=== PATIENT | male | born 1965 | race African-American/Black ===

== ENCOUNTER 2019-03-03 11:56 | Emergency (ER) | payer SELFPAY ==
[~2019-03-03] VITALS: Ht 180.3 cm; Wt 102.1 kg
[2019-03-03 12:10] VITALS: BP 169/90
--- NOTE | 2019-03-03 12:10 | NUR ---
ED Nurse Note: PT [id number], VSS WITH NO SIGNS OF ACUTE DISTRESS. c/o N/V (brown & yellow emesis) since last night;diaphoretic, + heavy alcohol consumption last night. PT FRIEND AT BEDSIDE.
--- NOTE | 2019-03-03 12:35 | NUR ---
ED Nurse Note: BLOOD DRAWN AND SENT TO LAB
[2019-03-03 13:05] LABS: APPEARANCE,URINE CLEAR; BILIRUBIN, URINE NEGATIVE (NEGATIVE); GLUCOSE, URINE (UA) NEGATIVE (NEGATIVE); KETONES,URINE 2+ (NEGATIVE); LEUKOCYTE ESTERASE ,URINE 1+ (NEGATIVE); NITRITE,URINE NEGATIVE (NEGATIVE); PH,URINE 8 (4.5-8.0); PROTEIN,URINE 3+ (NEGATIVE); UROBILINOGEN,URINE 1 MG/DL (0.0-1.0)
[2019-03-03 13:07] LABS: HEMATOCRIT 47.5 % (42.0-52.0); HEMOGLOBIN 16.2 G/DL (14.2-18.0); MEAN CORPUSCULAR VOLUME 80 FL (80-99); PLATELET COUNT 210 K/UL (150-450); RED BLOOD COUNT 5.96 M/UL (4.70-6.10); RED CELL DISTRIBUTION WIDTH 11.8 % (11.6-14.8); WHITE BLOOD COUNT 11.2 K/UL (4.8-10.8)
[2019-03-03 13:08] LABS: COLOR,URINE YELLOW
[2019-03-03 13:09] LABS: ANION GAP 16 mmol/L (5-15); BLOOD UREA NITROGEN 12 mg/dL (7-18); CALCIUM 9.7 MG/DL (8.5-10.1); CARBON DIOXIDE 22 MMOL/L (21-32); CHLORIDE 104 MMOL/L (98-107); CREATININE 1.1 MG/DL (0.55-1.30); POTASSIUM 3.7 MMOL/L (3.5-5.1); SODIUM 141 MMOL/L (136-145)
[2019-03-03 13:13] VITALS: BP 169/90
--- NOTE | 2019-03-03 13:13 | NUR ---
Note leeyaneli in EDM - 03/03/19 at 1316 by SKYLER ER DISCHARGE NOTE: Patient is cleared to be discharged per ERMD, pt is aox4, on room air, with stable vital signs. pt was given dc and prescription instructions, pt was able to verbalize understanding, pt id band and iv site removed without complications. pt is able to ambulate with steady gait. pt took all belongings.PT WITH FRIENDS.
--- NOTE | 2019-03-03 13:13 | NUR ---
Note leeyaneli in EDM - 03/03/19 at 1332 by SKYLER ER DISCHARGE NOTE: Patient is cleared to be discharged per ERMD, pt is aox4, on room air, with stable vital signs. pt was given dc and prescription instructions, pt was able to verbalize understanding, pt id band and iv site removed without complications. pt is able to ambulate with steady gait. pt took all belongings. PT WITH FRIEND.
[2019-03-03 13:19] LABS: ALANINE AMINOTRANSFERASE 23 U/L (12-78); ALBUMIN 4.3 G/DL (3.4-5.0); ALBUMIN/GLOBULIN RATIO 1.2 (1.0-2.7); ALKALINE PHOSPHATASE 113 U/L (46-116); ASPARTATE AMINO TRANSFERASE 19 U/L (15-37); BILIRUBIN,TOTAL 1.6 MG/DL (0.2-1.0)
[2019-03-03 13:22] LABS: BILIRUBIN,DIRECT 0.2 MG/DL (0.0-0.3)
[2019-03-03] MEDS ORDERED: Lidocaine 2% Visc 15ml soln ORAL ONE (13:45)
[2019-03-03] MEDS ORDERED: Mylanta II UD 30ml ORAL ONE (13:45)
[2019-03-03] MEDS ORDERED: Dicyclomine HCl 10mg/5ml oral soln ORAL ONE (13:45)
--- NOTE | 2019-03-03 13:48 | Emergency Room Report ---
History of Present Illness General Chief Complaint: Vomiting Source: Patient Present Illness HPI Disclaimer: Please note that this report is being documented using DRAGON technology. This can lead to erroneous entry secondary to incorrect interpretation by the dictating instrument. HPI: 53-year-old otherwise healthy male with no reported medical history presents for evaluation of abdominal pain and vomiting. He is visiting from [place] spanning the weekend with some friends and was out drinking last night. This morning when he awoke he was complaining of some epigastric and upper quadrant soreness and several episodes of bilious vomiting. Denies any coffee-ground emesis or gross hematemesis. No diarrhea and continues to pass gas. Denies dysuria or hematuria or flank pain. No fever or chills. Pain is exacerbated by eating and relieved by rest. He feels fatigued and drained but denies any fever, chills or other changes in his health. He has taken antacids in the past for GERD but states this is more intense. No history of pancreatitis or liver disease. PMH: Denies PSH: Denies Allergies: Denies Social Hx: Social alcohol use Allergies: Coded Allergies: No Known Allergies (Unverified , 03/03/19) Nursing Documentation-PMH Past Medical History: No History, Except For Review of Systems All Other Systems: negative except mentioned in HPI Physical Exam Vital Signs Date Time Temp Pulse Resp B/P (MAP) Pulse Ox O2 Delivery O2 Flow Rate FiO2 03/03/19 11:59 97.9 88 16 178/93 (121) 99 Room Air General: Awake and alert, no acute distress HEENT: NC/AT. EOMI. Cardiovascular: RRR. S1 and S2 normal. No murmur appreciated Resp: Normal work of breathing. No cough, wheezing or crackles appreciated Abdomen: Abdomen is soft, obese, nondistended. Tenderness in the epigastrium, left upper quadrant and right upper quadrant. There is no rebound, there is no Varma's. No masses appreciated. Skin: Intact. No abrasions, laceration or rash over the exposed skin MSK: Normal tone and bulk. Moving all extremities. No obvious deformity. Neuro: Awake and alert. Mentating appropriately. Medical Decision Making Diagnostic Impression: Primary Impression: Vomiting ER Course 53-year-old male with a history of GERD presents for evaluation of vomiting and abdominal cramping after drinking alcohol last night. Differential includes was not limited to alcohol gastritis, viral syndrome, gastroenteritis, pancreatitis, cholecystitis, obstruction, GERD. Of these, either alcohol gastritis or GERD are most likely. Overall he has been abdomen is benign and the patient is overall well-appearing with stable vital signs. Labs show no significant white count, normal kidney, liver and pancreatic function. He is receiving IV fluids and is improved after antiemetics. He complains of some mild cramping still we will give a GI cocktail however if he is clinically improved he may be discharged to follow-up with his PMD when he returns home. This likely a viral syndrome and should resolve in the next few days. We discussed reasons to return to the emergency department. He understands and agrees this treatment plan. Laboratory Tests Test 03/03/19 12:04 03/03/19 12:30 Urine Color Yellow Urine Appearance Clear Urine pH 8 (4.5-8.0) Urine Specific Orient 1.010 (1.005-1.035) Urine Protein 3+ (NEGATIVE) H Urine Glucose (UA) Negative (NEGATIVE) Urine Ketones 2+ (NEGATIVE) H Urine Blood 2+ (NEGATIVE) H Urine Nitrite Negative (NEGATIVE) Urine Bilirubin Negative (NEGATIVE) Urine Urobilinogen 1 MG/DL (0.0-1.0) H Urine Leukocyte Esterase 1+ (NEGATIVE) H Urine RBC 2-4 /HPF (0 - 0) H Urine WBC 2-4 /HPF (0 - 0) Urine Squamous Epithelial Cells None /LPF (NONE/OCC) Urine Bacteria Occasional /HPF (NONE) Urine Mucus Few /LPF (NONE/OCC) H White Blood Count 11.2 K/UL (4.8-10.8) H Red Blood Count 5.96 M/UL (4.70-6.10) Hemoglobin 16.2 G/DL (14.2-18.0) Hematocrit 47.5 % (42.0-52.0) Mean Corpuscular Volume 80 FL (80-99) Mean Corpuscular Hemoglobin 27.2 PG (27.0-31.0) Mean Corpuscular Hemoglobin Concent 34.2 G/DL (32.0-36.0) Red Cell Distribution Width 11.8 % (11.6-14.8) Platelet Count 210 K/UL (150-450) Mean Platelet Volume 12.1 FL (6.5-10.1) H Neutrophils (%) (Auto) % (45.0-75.0) Lymphocytes (%) (Auto) % (20.0-45.0) Monocytes (%) (Auto) % (1.0-10.0) Eosinophils (%) (Auto) % (0.0-3.0) Basophils (%) (Auto) % (0.0-2.0) Neutrophils % (Manual) Pending Lymphocytes % (Manual) Pending Platelet Estimate Pending Platelet Morphology Pending Sodium Level 141 MMOL/L (136-145) Potassium Level 3.7 MMOL/L (3.5-5.1) Chloride Level 104 MMOL/L (98-107) Carbon Dioxide Level 22 MMOL/L (21-32) Anion Gap 16 mmol/L (5-15) H Blood Urea Nitrogen 12 mg/dL (7-18) Creatinine 1.1 MG/DL (0.55-1.30) Estimate Glomerular Filtration Rate > 60 mL/min (>60) Glucose Level 172 MG/DL (74-106) H Calcium Level 9.7 MG/DL (8.5-10.1) Total Bilirubin 1.6 MG/DL (0.2-1.0) H Direct Bilirubin 0.2 MG/DL (0.0-0.3) Aspartate Amino Transferase (AST) 19 U/L (15-37) Alanine Aminotransferase (ALT) 23 U/L (12-78) Alkaline Phosphatase 113 U/L (46-116) Total Protein 7.9 G/DL (6.4-8.2) Albumin 4.3 G/DL (3.4-5.0) Globulin 3.6 g/dL Albumin/Globulin Ratio 1.2 (1.0-2.7) Lipase 91 U/L (73-393) Last Vital Signs Date Time Temp Pulse Resp B/P (MAP) Pulse Ox O2 Delivery O2 Flow Rate FiO2 03/03/19 12:10 98.4 78 14 169/90 99 Room Air Disposition: HOME, SELF-CARE Condition: Stable Scripts Polyethylene Glycol 3350* (MIRALAX*) 17 Gm Powd.pack 17 GM ORAL BID for 5 Days, #10 PACKET Prov: Sonu Malave MD 03/03/19 Ondansetron Odt* (ZOFRAN ODT*) 4 Mg Tab.rapdis 4 MG BC EVERY 6 HOURS PRN for Nausea & Vomiting, #20 TAB 0 Refills Prov: Sonu Malave MD 03/03/19 Famotidine (FAMOTIDINE) 20 Mg Tablet 20 MG ORAL DAILY, #30 TAB 0 Refills Prov: Sonu Malave MD 03/03/19 Sonu Malave MD Mar 03, 2019 13:47
[2019-03-03] MEDS ORDERED: FAMOTIDINE20 MG ORAL (13:49)
[2019-03-03] MEDS ORDERED: ONDANSETRON ODT4 MG BC (13:49)
[2019-03-03] MEDS ORDERED: MIRALAX17 G2 ORAL (14:51)
== END 2019-03-03 15:51 | disposition home or self-care (01) ==
LOC: EMR 15:40
DX: R11.10 Vomiting, unspecified (principal); K21.9 Gastro-esophageal reflux disease without esophagitis; F10.10 Alcohol abuse, uncomplicated
CPT/HCPCS: 36415; 80053; 81003; 82248; 83690; 85007; 85025; 96361; 96374; 96375; 99284; J2405; S0028; J7030